=== PATIENT | male | born 1980 | race Caucasian/White ===

== ENCOUNTER 2024-07-24 06:56 | Outpatient (RCR) | payer BC, SELFPAY | END 2024-07-25 11:56 | disposition home or self-care (01) | LOC: PT 06:56 | PROVIDERS: PCP Family Medicine; Visit Provider Podiatrist Foot & Ankle Surgery | DX: S86.112D Strain of other muscle(s) and tendon(s) of posterior muscle group at lower leg level, left leg, subsequent encounter (principal) | CPT/HCPCS: 97161 ==